=== PATIENT | male | born 1955 | race Caucasian/White ===

== ENCOUNTER 2023-09-13 06:36 | Day surgery (SDC) | payer OTHER ==
[2023-09-13] MEDS ORDERED: LACTATED RINGERS 1,000 ML IV ONE ×2 (06:55→08:07)
[2023-09-13] MEDS ORDERED: PHENYLEPHRINE 2.5% OPHTH 2 ML DROPS LEFTEYE ONE (06:58)
[2023-09-13] MEDS ORDERED: PROPARACAINE 0.5% OPHTH DROPS 15 ML LEFTEYE ONE (06:59)
[2023-09-13] MEDS ORDERED: EPINEPHrine 1 MG/ML AMP IR ONE (07:20)
[2023-09-13] MEDS ORDERED: BRIMONIDINE 0.2% OPHTH DROPS 5 ML OPTH ONE (07:20)
[2023-09-13] MEDS ORDERED: TIMOLOL 0.5% OPHTH DROPS OPTH ONE (07:21)
[2023-09-13] MEDS ORDERED: BSS/LIDOCAINE/EPINEPHRINE 1 ML SYRINGE IO ONE (07:21)
[2023-09-13] MEDS ORDERED: TRIAMCIN/MOXIFLOX OPHTHALMIC 0.6 ML VIAL IO ONE (07:21)
[2023-09-13] MEDS ORDERED: PROPARACAINE 0.5% OPHTH DROPS 15 ML EACHEYE ONE (07:22)
[2023-09-13] MEDS ORDERED: VANCOMYCIN OPHTH (TOPICAL) 10 MG/ML SYRINGE TOP ONE (07:22)
--- NOTE | 2023-09-13 07:23 | ANESTHESIA ---
Pre-Anesthesia VS, & Labs - Diagnosis L cataract - Procedure L cataract Vital Signs: Temp Pulse Resp BP Pulse Ox O2 Flow Rate 36.5 C 94 16 161/86 H 94 0 09/13/23 07:01 09/13/23 07:01 09/13/23 07:01 09/13/23 07:01 09/13/23 07:01 09/13/23 07:01 Height: 5 ft 10 in Weight (kg): 109.6 kg Body Mass Index: 34.7 BMI Classification: Obese - NPO >8 hours - Lab Results Current Lab Results: Laboratory Tests 09/13/23 07:05: POC Whole Bld Glucose 150 H Home Medications and Allergies Home Medications: Ambulatory Orders Dapagliflozin Propanediol [Farxiga] 10 mg PO DAILY 09/12/23 Glipizide [Glipizide ER] 5 mg PO DAILY 09/12/23 Losartan [Cozaar] 25 mg PO DAILY 09/12/23 Metoprolol Succinate [Kapspargo Sprinkle] 25 mg PO DAILY 09/12/23 Dapagliflozin Propanediol [Farxiga] 10 mg PO DAILY 09/12/23 Glipizide [Glipizide ER] 5 mg PO DAILY 09/12/23 Losartan [Cozaar] 25 mg PO DAILY 09/12/23 Metoprolol Succinate [Kapspargo Sprinkle] 25 mg PO DAILY 09/12/23 Allergies/Adverse Reactions: Allergies Allergy/AdvReac Type Severity Reaction Status Date / Time celecoxib [From Celebrex] AdvReac Nausea Verified 09/12/23 12:05 citalopram [From Celexa] AdvReac Nausea Verified 09/12/23 12:05 sulfamethoxazole AdvReac Rash Verified 09/12/23 12:04 [From Septra] trimethoprim [From Septra] AdvReac Rash Verified 09/12/23 12:04 Anes History & Medical History - Anesthetic History Anesthesia Complications: reports: No previous complications Family history of Anesthesia Complications: Denies Family history of Malignant Hyperthermia: Denies - Medical History Cardiovascular: reports: Hypertension, Atrial fibrillation, Valve disorder Pulmonary: reports: COPD, Shortness of breath, Other Gastrointestinal: reports: Other Urinary: reports: None, Benign prostate hypertrophy Musculoskeletal: reports: Osteoarthritis, Chronic back pain Endocrine/Autoimmune: reports: Type 2 diabetes Skin: reports: Psoriasis Psychosocial: reports: No issues indicated - Surgical History General: reports: Appendectomy, Other Cardiothoracic: reports: Valve replacement, Lobectomy Urologic: reports: Nephrectomy Exam General: Alert, Oriented x3, Cooperative Dental: WNL Mouth Openin Fingerbreadth Mallampati classification: III Thyromental Distance: less than 4 cm Respiratory: Lungs clear Cardiovascular: Regular rate Plan Anesthesia Type: MAC Consent for Procedure(s) Verified and Reviewed: Yes Code Status: Attempt Resuscitation ASA classification: 3-Severe systemic disease Is this case an emergency?: No
[2023-09-13 08:13] VITALS: O2SAT 95
[2023-09-13 08:23] VITALS: BP 136/77
--- NOTE | 2023-09-13 09:00 | OPERATIVE REPORT ---
Operative Report - Other Other Information/Narrative: Date of Surgery: 09/13/23 Preop Dx: Visually significant cataract left eye. This was the first cataract surgery. Postop Dx: Same Procedure: Phacoemulsification with posterior chamber toric intraocular lens implant left eye Surgeon: Dr. Gama Choudhury Anesthesia: Monitored anesthesia care Complications: None Operative Indications: This is a 68-year-old M with progressive vision loss in the left eye due to 3+ nuclear sclerotic and 2+ posterior subcapsular cataract. Best corrected visual acuity was 20/40 with glare to light perception vision in the left eye. Indications for surgery were: - Overall decrease in vision - Difficulty seeing words on a computer screen - Difficulty reading - Difficulty seeing words, closed captions, or game scores on TV - Difficulty seeing street signs - Difficulty driving in low light or at night - Difficulty driving at night because of headlights from other vehicles - Difficulty with glare or bright lights in any situation - Decreased acuity with firearms The patient was consented at length concerning the risks and benefits of c ataract surgery after which the patient expressed a desire to proceed with surgery. Operative Procedure: The patients cornea was marked in the pre-surgical area to indicate the axis for the toric intraocular lens. The patient was taken into OR#3 and placed under monitored anesthesia care. A surgical time-out was conducted confirming correct patient, correct procedure, and correct surgical site. The patient was given topical anesthesia and then prepped and draped in the usual sterile fashion. The eye was entered at the 6 and 3 oclock positions. Intracameral Shugarcaine was injected into the anterior chamber followed by a dispersive viscoelastic. A continuous-tear curvilinear capsulorhexis was performed. The nucleus was hydrodissected and phacoemulsified. The cortex was evacuated using automated infusion and aspiration. A cohesive viscoelastic was injected into the capsular bag and a 20.5 diopter toric intraocular lens was inserted into the bag and rotated to axis 177. Infusion and aspiration were used to evacuate the viscoelastic materials from the eye and the IOL was verified to remain on axis. The wounds were hydrated and the eye inflated to physiologic pressure using balanced salt solution. Approximately 0.25ml of a mixture of triamcinolone and moxifloxacin was injected trans- sclerally into the vitreous in the inferotemporal quadrant using a 30 gauge cannula. An additional 0.25ml of a mixture of triamcinolone and moxifloxacin was injected subconjunctivally in the superior quadrant for infection and inflammation prophylaxis. Wound integrity was checked with Weck-Gavi sponges and the IOL axis was once again verified to be on the correct axis. The patient was taken from the operating room in good condition and given post-op instructions.
--- NOTE | 2023-09-13 10:29 | ANESTHESIA POST OP EVALUATION ---
Anesthesia Post Eval - Post Anesthesia Eval Vitals: Last Vital Signs Temp 36.4 C L 09/13/23 08:19 Pulse 86 09/13/23 08:19 Resp 16 09/13/23 08:19 BP 136/77 H 09/13/23 08:19 Pulse Ox 95 09/13/23 08:19 O2 Flow Rate 0 09/13/23 07:01 CV Function Including HR & BP: Stable Pain Control: Satisfactory Nausea & Vomiting: Negative Mental Status: Baseline Respiratory Status: Airway Patent Hydration Status: Satisfactory Anesthesia Complications: None
== END 2023-09-13 06:37 | disposition home or self-care (01) ==
LOC: SDS 06:36
PROVIDERS: ATTEND Ophthalmology
DX: E11.36 Type 2 diabetes mellitus with diabetic cataract (principal); H25.812 Combined forms of age-related cataract, left eye; Z79.84 Long term (current) use of oral hypoglycemic drugs; E66.9 Obesity, unspecified; Z68.34 Body mass index [BMI] 34.0-34.9, adult; I48.91 Unspecified atrial fibrillation; Z79.899 Other long term (current) drug therapy; J44.9 Chronic obstructive pulmonary disease, unspecified; N40.0 Benign prostatic hyperplasia without lower urinary tract symptoms
CPT/HCPCS: 66984; A9270; J7120

== ENCOUNTER 2023-11-15 07:59 | Day surgery (SDC) | payer OTHER ==
[~2023-11-15 07:59] MED LIST: PROPARACAINE 0.5% OPHTH DROPS 15 ML ONE
[2023-11-15] MEDS: LACTATED RINGERS 1,000 ML IV ONE ×2 (08:03→09:53)
[2023-11-15] MEDS: KETOROLAC 0.45% OPHTH DROPS ONE (08:15)
[2023-11-15] MEDS: PROPARACAINE 0.5% OPHTH DROPS 15 ML ONE (08:15)
[2023-11-15] MEDS: PHENYLEPHRINE 2.5% OPHTH 2 ML DROPS ONE (08:22)
[2023-11-15] MEDS ORDERED: BSS/LIDOCAINE/EPINEPHRINE 1 ML VIAL ONE (09:06)
[2023-11-15] MEDS ORDERED: TIMOLOL 0.5% OPHTH DROPS ONE (09:06)
[2023-11-15] MEDS ORDERED: BRIMONIDINE 0.2% OPHTH DROPS 5 ML ONE (09:06)
[2023-11-15] MEDS ORDERED: EPINEPHrine 1 MG/ML AMP ONE (09:06)
--- NOTE | 2023-11-15 09:08 | ANESTHESIA ---
Pre-Anesthesia VS, & Labs - Diagnosis right eye cataract - Procedure PE IOL OD Vital Signs: Temp Pulse Resp BP Pulse Ox O2 Flow Rate 36.3 C L 81 16 141/69 H 96 11/15/23 08:06 11/15/23 08:06 11/15/23 08:06 11/15/23 08:06 11/15/23 08:06 Height: 5 ft 10 in Weight (kg): 110 kg Body Mass Index: 34.7 BMI Classification: Obese - Lab Results Current Lab Results: Laboratory Tests 11/15/23 08:27: POC Whole Bld Glucose 164 H Home Medications and Allergies Home Medications: Ambulatory Orders Pravastatin Sodium 20 mg PO 11/14/23 Dapagliflozin Propanediol [Farxiga] 10 mg PO DAILY 09/12/23 Glipizide [Glipizide ER] 5 mg PO DAILY 09/12/23 Losartan [Cozaar] 25 mg PO DAILY 09/12/23 Metoprolol Succinate [Kapspargo Sprinkle] 25 mg PO DAILY 09/12/23 Pravastatin Sodium 20 mg PO 11/14/23 Allergies/Adverse Reactions: Allergies Allergy/AdvReac Type Severity Reaction Status Date / Time celecoxib [From Celebrex] AdvReac Nausea Verified 09/12/23 12:05 citalopram [From Celexa] AdvReac Nausea Verified 09/12/23 12:05 sulfamethoxazole AdvReac Rash Verified 09/12/23 12:04 [From Septra] trimethoprim [From Septra] AdvReac Rash Verified 09/12/23 12:04 Anes History & Medical History - Anesthetic History Anesthesia Complications: reports: No previous complications (OTHER EYE DONE IN NOV W/O PROBLEMS) Family history of Anesthesia Complications: Denies Family history of Malignant Hyperthermia: Denies - Medical History Cardiovascular: reports: Hypertension, Valve disorder (S/P AVR 2019) Pulmonary: reports: COPD, Shortness of breath, Other Gastrointestinal: reports: Other Urinary: reports: None, Benign prostate hypertrophy Musculoskeletal: reports: Osteoarthritis, Chronic back pain Endocrine/Autoimmune: reports: Type 2 diabetes Skin: reports: Psoriasis - Surgical History General: reports: Appendectomy, Other Cardiothoracic: reports: Valve replacement, Lobectomy Urologic: reports: Nephrectomy Exam General: Alert Dental: WNL, Dentures full Upper Mouth Openin Fingerbreadth Neck Mobility: Normal Mallampati classification: II Thyromental Distance: 4-6 cm Respiratory: Other (SAYS HE DID OK LYING FLAT LAST TIME) Plan Anesthesia Type: MAC Consent for Procedure(s) Verified and Reviewed: Yes Code Status: Attempt Resuscitation ASA classification: 3-Severe systemic disease Is this case an emergency?: No
[2023-11-15] MEDS ORDERED: MIDAZOLAM 2 MG/2 ML VIAL ONE (09:13)
[2023-11-15] MEDS ORDERED: fentaNYL 100 MCG/2 ML VIAL ONE (09:14)
[2023-11-15] MEDS ORDERED: TRIAMCIN/MOXIFLOX OPHTHALMIC 0.6 ML VIAL IO ONE (09:21)
[2023-11-15] MEDS: VANCOMYCIN OPHTH (TOPICAL) 10 MG/ML SYRINGE TOP ONE (09:43)
[2023-11-15] MEDS: EPINEPHrine 1 MG/ML AMP IR ONE (09:43)
[2023-11-15] MEDS: BRIMONIDINE 0.2% OPHTH DROPS 5 ML OPTH ONE (09:43)
[2023-11-15] MEDS: PROPARACAINE 0.5% OPHTH DROPS 15 ML RIGHTEYE ONE (09:43)
[2023-11-15] MEDS: TRIAMCIN/MOXIFLOX OPHTHALMIC 0.6 ML VIAL IO ONE (09:43)
[2023-11-15] MEDS: BSS/LIDOCAINE/EPINEPHRINE 1 ML SYRINGE IO ONE (09:43)
[2023-11-15] MEDS: TIMOLOL 0.5% OPHTH DROPS OPTH ONE (09:43)
[2023-11-15 10:04] VITALS: O2SAT 97
--- NOTE | 2023-11-15 10:06 | OPERATIVE REPORT ---
Operative Report - Other Other Information/Narrative: Date of Surgery: 11/15/23 Preop Dx: Visually significant cataract right eye. Cataract surgery was performed in the left eye on . Postop Dx: Same Procedure: Phacoemulsification with posterior chamber toric intraocular lens implant right eye Surgeon: Dr. Gama Choudhury Anesthesia: Monitored anesthesia care Complications: None Operative Indications: This is a 68-year-old M with progressive vision loss in the right eye due to 2+ nuclear sclerotic cataract. Best corrected visual acuity was 20/25 with glare to 20/125 vision in the right eye. Indications for surgery were: - Overall decrease in vision - Difficulty seeing words on a computer screen - Difficulty reading - Difficulty seeing words, closed captions, or game scores on TV - Difficulty seeing street signs - Difficulty driving in low light or at night - Difficulty driving at night because of headlights from other vehicles - Difficulty with glare or bright lights in any situation - Difficulty tracking a golf ball - Decreased acuity with firearms The patient was consented at length concerning the risks and benefits of cataract surgery after which the patient expressed a desire to proceed with surgery. Operative Procedure: The patients cornea was marked in the pre-surgical area to indicate the axis for the toric intraocular lens. The patient was taken into OR#3 and placed under monitored anesthesia care. A surgical time-out was conducted confirming correct patient, correct procedure, and correct surgical site. The patient was given topical anesthesia and then prepped and draped in the usual sterile fashion. The eye was entered at the 6 and 3 oclock positions. Intracameral Shugarcaine was injected into the anterior chamber followed by a dispersive viscoelastic. A continuous-tear curvilinear capsulorhexis was performed. The nucleus was hydrodissected and phacoemulsified. The cortex was evacuated using automated infusion and aspiration. A cohesive viscoelastic was injected into the capsular bag and a 20.0 diopter toric intr aocular lens was inserted into the bag and rotated to axis 029. Infusion and aspiration were used to evacuate the viscoelastic materials from the eye and the IOL was verified to remain on axis. The wounds were hydrated and the eye inflated to physiologic pressure using balanced salt solution. Approximately 0.25ml of a mixture of triamcinolone and moxifloxacin was injected trans- sclerally into the vitreous in the inferotemporal quadrant using a 30 gauge cannula. An additional 0.25ml of a mixture of triamcinolone and moxifloxacin was injected subconjunctivally in the superior quadrant for infection and inflammation prophylaxis. Wound integrity was checked with Weck-Gavi sponges and the IOL axis was once again verified to be on the correct axis. The patient was taken from the operating room in good condition and given post-op instructions.
[2023-11-15 10:14] VITALS: BP 131/75
--- NOTE | 2023-11-15 11:20 | ANESTHESIA POST OP EVALUATION ---
Anesthesia Post Eval - Post Anesthesia Eval Vitals: Last Vital Signs Temp 36.3 C L 11/15/23 10:09 Pulse 88 11/15/23 10:09 Resp 16 11/15/23 10:09 BP 131/75 H 11/15/23 10:09 Pulse Ox 97 11/15/23 10:09 O2 Flow Rate CV Function Including HR & BP: Stable Pain Control: Satisfactory Nausea & Vomiting: Negative Mental Status: Baseline Respiratory Status: Airway Patent Hydration Status: Satisfactory Anesthesia Complications: None
== END 2023-11-15 08:00 | disposition home or self-care (01) ==
LOC: SDS 07:59
PROVIDERS: ATTEND Ophthalmology
DX: E11.36 Type 2 diabetes mellitus with diabetic cataract (principal); H25.811 Combined forms of age-related cataract, right eye; J44.9 Chronic obstructive pulmonary disease, unspecified; Z87.891 Personal history of nicotine dependence; E66.9 Obesity, unspecified; Z68.34 Body mass index [BMI] 34.0-34.9, adult; Z79.84 Long term (current) use of oral hypoglycemic drugs; Z98.42 Cataract extraction status, left eye

== ENCOUNTER 2024-06-13 11:00 | Outpatient (CLI) | payer OTHER ==
--- NOTE | 2024-06-13 11:37 | Sleep Patient Instructions ---
Sleep Center Visit Summary - Patient Visit Information Reason for Visit: Initial consult for evaluation of sleep disordered breathing and other sleep issues. - Patient Instructions Instructions Attached: Sleep Study, Sleep Study Home Monitor Additional Instructions: You will be completing a sleep study, either an in-lab polysomnography (PSG) or home sleep study (HST). You will follow-up in the sleep care office after the sleep study is completed to hear the results and talk about therapy, if needed. You will be called by our office staff to schedule this appointment, but you may contact us with any questions. - Clinic Information Contact: [facility] [address] [place] [id number] [email or web address] T: [phone]
--- NOTE | 2024-06-13 11:41 | SLEEP CARE CONSULTATION ---
Information from patient questionnaire entered by Madison Ponce. I have reviewed and concur with the information entered by Madison Ponce. This document represents the service I personally performed and the decisions made by me, Razia Knight ARNP. History of Present Illness Service Date and Time: 06/13/2024 1100 Reason for Visit: New patient Chief Complaint: reports: Unrefreshed sleep, Observed pauses in breathing, Fatigue, Frequent awakenings at night Date of Onset: 2 + years Usual bedtime: 1900 Time it takes to fall asleep: Hour Snores at night: No (has never been told he snores, sleeping alone) Observed to quit breathing while asleep: Yes Sleeps alone due to snoring: No (No partner) Number of times waking at night: 3 - 4 Reasons for waking at night: reports: Gasping for air, Bathroom, Other (Unknown reason) Toss, Turn, or Twitch while sleeping: No (Not sure) Recalls having dreams: Yes Usually gets out of bed at: 0500 - 0600 Feels refreshed in the morning: No Morning headache: No Sleepy or fatigued during the day: Yes Ever fallen asleep while driving: No Takes day naps: No Prior sleep studies: Yes Year and Where: 2006 [facility], negative Type of Sleep Study: Polysomnography Additional HPI information: I had the pleasure of seeing JOSE BARAJAS today regarding the possibility of him having a sleep disorder. His current complaints are fatigue, frequent night awakenings, observed pauses in breathing and unrefreshed sleep. He had recent hip surgery. He had 4-5 days where he woke up frequently feeling short of air and ended up back in hospital. He had lot of edema and is still on Lasix. He was told he has early congestive heart failure. He says he is always tired but he is being treated for prostate cancer. He states he had a sleep study here at [facility] in 2006. He was told he did not have sleep apnea at that time. - Parasomnia Symptoms Ever been unable to move upon waking from sleep: Yes (few times) Walks in sleep: No Talks in sleep: No (don't know) Ever acted out dreams in sleep: No Ever felt weak in the knees when startled or emotional: Yes Bothered by creepy, crawly, restless sensations in legs: No Problems with memory or concentration: Yes (both) Subjective Initial Frederic Sleepiness Scale score: 5 (06/13/24) Past Medical History Past Medical History: reports: Hypertension, Claustrophobia, Congestive Heart Failure, Diabetes, Arthritis, Insulin resistance, Other (Reduced lung capacity due to diaphramatic plication,metastatic prostate cancer; Aortic aneurysm and valve replacement) Social History 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 Patient is and lives in [place]. Have you smoked in the past 12 months: No Cigarettes per day (20/pack): 30 Quit date: 2012 Alcohol use: Yes Alcohol amount and frequency: 2 -3 drinks a year Caffeine use: Yes Caffeine amount and frequency: 1 cup coffee a day Family History Family history of sleep disordered breathing: No Allergies and Home Medications Known drug allergies: Yes (as listed) Drug allergies reviewed: Yes Home medication list reviewed: Yes (as listed in EMR) Allergy and home medication list: Allergies celecoxib [From Celebrex] Adverse Reaction (Verified 09/12/23 12:05) Nausea citalopram [From Celexa] Adverse Reaction (Verified 09/12/23 12:05) Nausea metformin Adverse Reaction (Verified 06/13/24 11:29) Unknown rosuvastatin Adverse Reaction (Verified 06/13/24 11:29) simvastatin Adverse Reaction (Verified 06/13/24 11:30) sulfamethoxazole [From Septra] Adverse Reaction (Verified 09/12/23 12:04) Rash trimethoprim [From Septra] Adverse Reaction (Verified 09/12/23 12:04) Rash Home Medications Dapagliflozin Propanediol [Farxiga] 10 mg PO DAILY 09/12/23 [History] Glipizide [Glipizide ER] 5 mg PO DAILY 09/12/23 [History] Metoprolol Succinate [Kapspargo Sprinkle] 25 mg PO DAILY 09/12/23 [History] Pravastatin Sodium 20 mg PO 11/14/23 [History] Abiraterone Acetate See Rx Instructions .ROUTE .COMPLEX 06/13/24 [History] Acetaminophen Extra Strength See Rx Instructions .ROUTE .COMPLEX 06/13/24 [History] Albuterol Sulfate See Rx Instructions .ROUTE .COMPLEX 06/13/24 [History] Clobetasol 0.05% Oint See Rx Instructions .ROUTE .COMPLEX 06/13/24 [History] Fluticasone Propionate See Rx Instructions .ROUTE .COMPLEX 06/13/24 [History] Furosemide 40 mg ORAL DAILY 06/13/24 [History] Ketoconazole 2% Cream See Rx Instructions .ROUTE .COMPLEX 06/13/24 [History] Megestrol 20 mg ORAL BID 06/13/24 [History] Prednisone 5 mg ORAL BID 06/13/24 [History] QUEtiapine 50 mg ORAL HS 06/13/24 [History] Tamsulosin 0.8 mg ORAL DAILY 06/13/24 [History] traMADol 50 mg ORAL DAILY 06/13/24 [History] Review of Systems Weight loss over past 5 years: 30 Cardiovascular: reports: high blood pressure Respiratory: reports: shortness of breath Urinary: reports: frequency Neurological: reports: headaches Psychiatric: reports: claustrophobia Ear/Nose/Throat: reports: nasal congestion, sinus problems, dry mouth/throat, tonsillectomy, wisdom teeth removed Endocrine: reports: sluggishness (/tired), too hot or cold, excessive thirst, increased appetite, increased urination Physical Exam Vital signs obtained and entered by: Razia Gresham NP Blood Pressure: 126/88 Cuff size: long (left arm) Heart Rate: 86 O2 Saturation: 98 Height: 5 ft 9.5 in Weight: 231 lb 6.4 oz Body Mass Index: 33.7 BMI Classification: Obese Neck circumference: 17 (inches) Nostrils: patent to airflow Mouth and throat: narrow oropharynx Soft palate: long Hard palate: normal Uvula: normal Uvula visualization: 0% Mallampati Class IV Tongue: enlarged in size with teeth crane on lateral edges Tonsils: absent bilaterally Neck: normal w/o lymphadenopathy or thyromegaly Heart: regular rate and rhythm Lungs: clear bilaterally Impression and Plan 1. Suspected Obstructive Sleep Apnea-Hypopnea Syndrome, as suggested by a history of observed cessation of breath while asleep, gasping or choking in sleep, frequent awakening during the night, unrefreshed sleep and cognitive impairment. Narrow oropharynx and obesity are common predisposing factors for obstructive sleep apnea-hypopnea syndrome. I recommend proceeding to polysomnography to confirm the diagnosis and to assess severity. If the patient has significant sleep disordered breathing, a manual CPAP titration study will also be performed to find the optimal treatment pressure. I informed the patient of what the sleep studies involve and after some discussion, obtained agreement to proceed. The pathophysiology of obstructive sleep apnea-hypopnea syndrome was discussed with the patient and health risks of cardiovascular and cerebrovascular disease if not treated. Risks of drowsy driving discussed in detail and patient advised to avoid long distance driving and to assembler for puller over machine at the first sign of drowsiness. Patient agreed to plan. * Schedule polysomnography +- manual CPAP titration study and return in 1-2 weeks after the study to discuss result and initiate therapy. * Avoid long distance driving or driving when feeling sleepy. * Avoid alcohol, sedative and muscle relaxant around bedtime. * Attempt to lose weight. * Review instructions provided by trained office staff on how to prepare for the sleep study. * Return for follow-up after sleep study completed. Counseling Topics: Weight loss health impact Plan: PSG and followup Visit Type: In Office Time Spent with Patient (minutes): 37 Provider Statement: I spent 100% of the Face to Face Visit with the patient with greater than 50% spent counseling the patient and coordination of care.
[2024-06-13 11:43] VITALS: BP 126/88; O2SAT 98
== END 2024-06-13 11:01 | disposition home or self-care (01) ==
LOC: SC 11:00
PROVIDERS: ATTEND Nurse Practitioner Family
DX: G47.8 Other sleep disorders (principal); R06.81 Apnea, not elsewhere classified; R53.83 Other fatigue; R41.89 Other symptoms and signs involving cognitive functions and awareness; E66.9 Obesity, unspecified; Z68.33 Body mass index [BMI] 33.0-33.9, adult; Z87.891 Personal history of nicotine dependence
CPT/HCPCS: 99203; 99212

== ENCOUNTER 2024-07-04 08:51 | Outpatient (CLI) | payer OTHER | END 2024-07-04 08:52 | disposition home or self-care (01) | LOC: SC 08:51 | PROVIDERS: ATTEND Nurse Practitioner Family | DX: G47.33 Obstructive sleep apnea (adult) (pediatric) (principal); E66.9 Obesity, unspecified; Z68.34 Body mass index [BMI] 34.0-34.9, adult | CPT/HCPCS: 95806 ==